=== PATIENT | female | born 1960 | race Caucasian/White ===

== ENCOUNTER 2017-09-12 14:15 | Emergency (ER) | payer OTHER ==
[~2017-09-12] VITALS: Ht 162.6 cm; Wt 77.2 kg
[2017-09-12 15:12] LABS: HEMATOCRIT 41.2 % (36.0-46.0); HEMOGLOBIN 14.2 G/DL (11.9-15.5); MCH 33.8 PG (29.0-34.0); MCHC 34.5 G/DL (30.0-36.0); MCV 98.1 FL (83-99); PLATELET COUNT 220 K/uL (156-360); RBC DIS.WIDTH-CV 13.1 % (11.8-14.6); RBC DIS.WIDTH-SD 46.5 % (39-53); WHITE BLOOD COUNT 7.1 K/uL (4.1-10.2)
[2017-09-12 15:20] LABS: CHLORIDE 110 mEq/L (99-109); POTASSIUM 3.7 mEq/L (3.7-5.4); SODIUM 145 mEq/L (136-147)
[2017-09-12 15:22] LABS: GLUCOSE 95 mg/dL (70-99)
[2017-09-12 15:26] LABS: CREATININE 0.8 mg/dL (0.6-1.3); GFR ESTIMATE (CALCULATED) > 59 mL/min/
[2017-09-12 15:27] LABS: UREA NITROGEN (BUN) 9 mg/dL (9-23)
[2017-09-12] MEDS ORDERED: ZITHROMAX Z-PA250 MG PO (18:29)
[2017-09-12] MEDS ORDERED: ALBUTEROL2.5 MG/0.5 IH (18:29)
[2017-09-12] MEDS ORDERED: PREDNISONE20 MG PO (18:29)
[2017-09-12 18:41] VITALS: BP 137/88
== END 2017-09-12 18:41 | disposition home or self-care (01) ==
LOC: EME 14:15
PROVIDERS: Physician Assistant
DX: J44.0 Chronic obstructive pulmonary disease with (acute) lower respiratory infection (principal); J20.9 Acute bronchitis, unspecified; J44.1 Chronic obstructive pulmonary disease with (acute) exacerbation; I10 Essential (primary) hypertension; E78.5 Hyperlipidemia, unspecified; F32.9 Major depressive disorder, single episode, unspecified; F17.200 Nicotine dependence, unspecified, uncomplicated; Z85.118 Personal history of other malignant neoplasm of bronchus and lung; Z86.11 Personal history of tuberculosis; Z88.0 Allergy status to penicillin; Z88.6 Allergy status to analgesic agent
CPT/HCPCS: 71046; 80048; 85027; 87502; 94640; 94644; 99281; 99284; J2930